=== PATIENT | male | born 1935 | race Caucasian/White ===

== ENCOUNTER → 2020-08-21 | Outpatient (CLI) | payer MEDICARE ==
[~2020-08-21] MED LIST: ALBU90OI INH; ASPI81EC PO; FINA5 PO; LIVALO2 MG PO; LOSA25 PO; LOVA40 PO; TAMS.4ER PO; XARELTO PO; Zithromax250 MG PO
== END | disposition home or self-care (01) ==
LOC: LAB SHORT 10:44 → PLD 10:44
DX: D48.5 Neoplasm of uncertain behavior of skin (principal)
CPT/HCPCS: 88305

== ENCOUNTER → 2020-08-28 | Outpatient (CLI) | payer MEDICARE | END | disposition home or self-care (01) | LOC: PLD 08:13 → LAB SHORT 08:13 | DX: C44.311 Basal cell carcinoma of skin of nose (principal) | CPT/HCPCS: 88305 ==

== ENCOUNTER 2021-05-27 08:46 | Emergency (ER) | payer MEDICARE ==
[~2021-05-27] VITALS: Ht 172.7 cm; Wt 83.9 kg
[2021-05-27] MEDS ORDERED: CODACE30 PO (10:42)
== END 2021-05-27 11:10 | disposition home or self-care (01) ==
LOC: ER 08:46
DX: S80.02XA Contusion of left knee, initial encounter (principal); S70.02XA Contusion of left hip, initial encounter; I48.91 Unspecified atrial fibrillation; E78.5 Hyperlipidemia, unspecified; Z79.01 Long term (current) use of anticoagulants; Z79.899 Other long term (current) drug therapy
CPT/HCPCS: 73502; 73552; 73562-LT; 99283-25

== ENCOUNTER → 2022-07-14 | Outpatient (CLI) | payer MEDICARE ==
[~2022-07-14] MED LIST changes: +CODACE30 PO
== END | disposition home or self-care (01) ==
LOC: LAB SHORT 11:32 → PLD 11:32 → LAB 11:32
DX: C44.311 Basal cell carcinoma of skin of nose (principal); L57.0 Actinic keratosis
CPT/HCPCS: 88305; 88312

== ENCOUNTER 2022-08-06 06:02 | Day surgery (SDC) | payer MEDICARE ==
[~2022-08-06] VITALS: Ht 172.7 cm; Wt 74.0 kg
[~2022-08-06 06:02] MED LIST changes: +XARELTO20 MG PO
--- NOTE | 2022-08-06 08:57 | NUR ---
patient awake and responds apprpriately,dressing d&i, no hematoma, no bleeding
--- NOTE | 2022-08-06 09:22 | NUR ---
PT SITTING UP ON THE SIDE OF THE BED, EATING BREAKFAST. DENIES PAIN OR DISCOMFORT. VSS, REMAINS AT BEDSIDE.
--- NOTE | 2022-08-06 09:51 | NUR ---
IV DC'D, CATH INTACT. PT AND SPOUSE GIVEN DC INSTRUCTIONS AND FOLLOW UP INFO, VERBALIZED UNDERSTANDING. 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 PT OUT TO CAR VIA WHEELCHAIR.
== END 2022-08-06 10:15 | disposition home or self-care (01) ==
LOC: MHTC 06:02
DX: Z45.010 Encounter for checking and testing of cardiac pacemaker pulse generator [battery] (principal); R55 Syncope and collapse; I48.91 Unspecified atrial fibrillation; I10 Essential (primary) hypertension; I25.10 Atherosclerotic heart disease of native coronary artery without angina pectoris; E78.5 Hyperlipidemia, unspecified; I34.0 Nonrheumatic mitral (valve) insufficiency; I45.4 Nonspecific intraventricular block
CPT/HCPCS: 33228; 99152; 99153; C1781; C1785; J0690; J1644; J2250; J3010; J7040

== ENCOUNTER 2022-10-04 10:21 | Emergency (ER) | payer MEDICARE ==
[~2022-10-04] VITALS: Ht 172.7 cm; Wt 75.3 kg
[2022-10-04] MEDS ORDERED: LOSA50 PO (12:38)
[2022-10-04] MEDS ORDERED: EUTHYROX75 MC1 PO (12:38)
[2022-10-04] MEDS ORDERED: DOCU100 PO (13:05)
[2022-10-04] MEDS ORDERED: HYDR1TAB94 PO (13:05)
== END 2022-10-04 13:18 | disposition home or self-care (01) ==
LOC: ER 10:21
DX: S40.011A Contusion of right shoulder, initial encounter (principal); M19.011 Primary osteoarthritis, right shoulder; E78.5 Hyperlipidemia, unspecified; W11.XXXA Fall on and from ladder, initial encounter; Z79.899 Other long term (current) drug therapy; Z79.01 Long term (current) use of anticoagulants; Z79.890 Hormone replacement therapy; Z95.0 Presence of cardiac pacemaker; Z95.5 Presence of coronary angioplasty implant and graft
CPT/HCPCS: 73030; A9270

== ENCOUNTER → 2023-04-08 | Outpatient (CLI) | payer MEDICARE ==
[~2023-04-08] MED LIST changes: +DOCU100 PO; +EUTHYROX75 MC1 PO; +HYDR1TAB94 PO; +LOSA50 PO
== END ==
LOC: PLD 15:01 → LAB SHORT 15:01
DX: D48.5 Neoplasm of uncertain behavior of skin (principal)
CPT/HCPCS: 88305

== ENCOUNTER 2024-07-26 16:29 | Emergency (ER) | payer OTHER, MEDICARE ==
[~2024-07-26] VITALS: Ht 172.7 cm; Wt 80.3 kg
[2024-07-26 19:12] VITALS: BP 153/81
[2024-07-26 19:31] LABS: BASOPHILS ABSOLUTE AUTO 0.03 K/mm3 (0.00-0.23); BASOPHILS PERCENT AUTO 1 % (0-2); EOSINOPHILS ABSOLUTE AUTO 0.13 K/mm3 (0.00-0.68); EOSINOPHILS PERCENT AUTO 2 % (0-6); Hemoglobin 9.1 g/dL (13.5-17.5); IMMATURE GRAN ABSOLUTE AUTO 0.02 K/mm3 (0.00-0.10); IMMATURE GRAN PERCENT AUTO 0 % (0-1); LYMPHOCYTES ABSOLUTE AUTO 0.96 K/mm3 (0.84-5.20); LYMPHOCYTES PERCENT AUTO 16 % (21-46); MONOCYTES ABSOLUTE AUTO 0.59 K/mm3 (0.16-1.47); MONOCYTES PERCENT AUTO 10 % (4-13); Mean Corpuscular HGB Conc 31.4 g/dL (31.5-36.5); Mean Corpuscular Volume 89 fL (80-100); Mean Platelet Volume 10.6 fL (9.1-12.4); NEUTROPHILS ABSOLUTE AUTO 4.44 K/mm3 (1.96-9.15); NEUTROPHILS PERCENT AUTO 72 % (41-73); Platelet Count 220 K/mm3 (150-400); RDW Coefficient Variation 15.5 % (11.7-14.2); Red Blood Cell Count 3.25 M/mm3 (4.30-5.90); White Blood Cell Count 6.17 K/mm3 (4.00-11.30)
[2024-07-26 19:37] LABS: International Normalized Ratio 1.4; Prothrombin Time Results 14.6 Sec (9.7-11.5)
[2024-07-26 19:44] LABS: Albumin, Blood 3.5 g/dL (3.4-5.0); Albumin/Globulin Ratio 0.9 (0.8-1.8); Bilirubin, Total 0.9 mg/dL (0.1-1.0); Bun/Creatinine Ratio 24.2 (12.0-20.0); Calcium, Blood 9.1 mg/dL (8.5-10.1); Creatinine, Blood 0.75 mg/dL (0.60-1.20); Globulin, Blood 3.7 g/dL (2.2-4.0); Potassium, Blood 4.2 mmol/L (3.5-5.5); Total Protein, Blood 7.2 g/dL (6.4-8.2)
== END 2024-07-26 20:28 | disposition home or self-care (01) ==
LOC: ER 16:29
PROVIDERS: Student in an Organized Health Care Education/Training Program
DX: S41.112A Laceration without foreign body of left upper arm, initial encounter (principal); S41.111A Laceration without foreign body of right upper arm, initial encounter; M25.552 Pain in left hip; I48.91 Unspecified atrial fibrillation; W01.0XXA Fall on same level from slipping, tripping and stumbling without subsequent striking against object, initial encounter; Z87.39 Personal history of other diseases of the musculoskeletal system and connective tissue; Z86.73 Personal history of transient ischemic attack (TIA), and cerebral infarction without residual deficits; Z79.899 Other long term (current) drug therapy; Z79.01 Long term (current) use of anticoagulants
CPT/HCPCS: 70450; 80053; 85025; 85610; 85730; 99284-25

== ENCOUNTER 2024-08-10 13:19 | Emergency (ER) | payer MEDICARE ==
[~2024-08-10] VITALS: Ht 172.7 cm; Wt 77.1 kg
[~2024-08-10 13:19] MED LIST changes: +EUTHYROX125 MC1 PO; -EUTHYROX75 MC1 PO
[2024-08-10 14:44] LABS: Source, Urine Voided
[2024-08-10 14:52] LABS: Appearance, Urine Clear (Clear); Bilirubin, Urine Neg (Neg); Blood, Urine Neg (Neg); Color, Urine Yellow (P-Yellow); Glucose Qualitative, Urine Neg (Neg); Ketones, Urine Neg (Neg); Leukocyte Esterase, Urine Neg (Neg); Nitrite, Urine Neg (Neg); Protein, Urine 1+ (Neg); Specific Gravity, Urine 1.015 (1.003-1.022); Urobilinogen, Urine 1+ (Normal)
[2024-08-10 15:10] LABS: BASOPHILS ABSOLUTE AUTO 0.03 K/mm3 (0.00-0.23); BASOPHILS PERCENT AUTO 0 % (0-2); EOSINOPHILS PERCENT AUTO 1 % (0-6); Hematocrit 28.8 % (37.0-53.0); Hemoglobin 9.3 g/dL (13.5-17.5); IMMATURE GRAN ABSOLUTE AUTO 0.01 K/mm3 (0.00-0.10); IMMATURE GRAN PERCENT AUTO 0 % (0-1); LYMPHOCYTES ABSOLUTE AUTO 0.92 K/mm3 (0.84-5.20); LYMPHOCYTES PERCENT AUTO 13 % (21-46); MONOCYTES ABSOLUTE AUTO 0.58 K/mm3 (0.16-1.47); MONOCYTES PERCENT AUTO 8 % (4-13); Mean Corpuscular HGB 28.5 pg (26.0-34.0); Mean Corpuscular HGB Conc 32.3 g/dL (31.5-36.5); Mean Corpuscular Volume 88 fL (80-100); Mean Platelet Volume 9.8 fL (9.1-12.4); NEUTROPHILS ABSOLUTE AUTO 5.36 K/mm3 (1.96-9.15); NEUTROPHILS PERCENT AUTO 77 % (41-73); Platelet Count 216 K/mm3 (150-400); RDW Coefficient Variation 16.6 % (11.7-14.2); RDW Standard Deviation 53.6 fL (35.1-46.3); Red Blood Cell Count 3.26 M/mm3 (4.30-5.90)
[2024-08-10 15:30] LABS: Albumin, Blood 3.6 g/dL (3.4-5.0); Bilirubin, Total 0.6 mg/dL (0.1-1.0); Bun/Creatinine Ratio 28.6 (12.0-20.0); Calcium, Blood 8.8 mg/dL (8.5-10.1); Creatinine, Blood 0.7 mg/dL (0.60-1.20); Globulin, Blood 3.7 g/dL (2.2-4.0); Potassium, Blood 3.9 mmol/L (3.5-5.5); Total Protein, Blood 7.3 g/dL (6.4-8.2)
[2024-08-10 16:00] VITALS: BP 131/79
[2024-08-10] MEDS ORDERED: QUEtiapine Fumarate 25 MG Tab PO ONE (17:05)
== END 2024-08-10 17:21 | disposition home or self-care (01) ==
LOC: ER 13:19
PROVIDERS: Emergency Medicine
DX: R45.1 Restlessness and agitation (principal); I25.10 Atherosclerotic heart disease of native coronary artery without angina pectoris; I48.91 Unspecified atrial fibrillation; E78.5 Hyperlipidemia, unspecified; Z79.01 Long term (current) use of anticoagulants; Z79.899 Other long term (current) drug therapy; Z79.890 Hormone replacement therapy; Z95.0 Presence of cardiac pacemaker; Z95.5 Presence of coronary angioplasty implant and graft
CPT/HCPCS: 36415; 80053; 85025; 99285; A9270

== ENCOUNTER 2024-08-11 17:41 | Observation (INO) | payer MEDICARE ==
[~2024-08-11] VITALS: Ht 172.7 cm; Wt 77.1 kg
[2024-08-11] MEDS ORDERED: QUEtiapine Fumarate 50 MG TAB PO ONE (20:00)
[2024-08-11 20:25] LABS: BASOPHILS ABSOLUTE AUTO 0.03 K/mm3 (0.00-0.23); BASOPHILS PERCENT AUTO 1 % (0-2); EOSINOPHILS ABSOLUTE AUTO 0.12 K/mm3 (0.00-0.68); EOSINOPHILS PERCENT AUTO 2 % (0-6); Hematocrit 29.6 % (37.0-53.0); Hemoglobin 9.2 g/dL (13.5-17.5); IMMATURE GRAN ABSOLUTE AUTO 0.01 K/mm3 (0.00-0.10); IMMATURE GRAN PERCENT AUTO 0 % (0-1); LYMPHOCYTES ABSOLUTE AUTO 0.94 K/mm3 (0.84-5.20); LYMPHOCYTES PERCENT AUTO 18 % (21-46); MONOCYTES ABSOLUTE AUTO 0.54 K/mm3 (0.16-1.47); MONOCYTES PERCENT AUTO 10 % (4-13); Mean Corpuscular HGB 28.4 pg (26.0-34.0); Mean Corpuscular HGB Conc 31.1 g/dL (31.5-36.5); Mean Corpuscular Volume 91 fL (80-100); Mean Platelet Volume 10.2 fL (9.1-12.4); NEUTROPHILS ABSOLUTE AUTO 3.63 K/mm3 (1.96-9.15); NEUTROPHILS PERCENT AUTO 69 % (41-73); Platelet Count 202 K/mm3 (150-400); RDW Coefficient Variation 17.1 % (11.7-14.2); RDW Standard Deviation 57.1 fL (35.1-46.3); Red Blood Cell Count 3.24 M/mm3 (4.30-5.90); White Blood Cell Count 5.27 K/mm3 (4.00-11.30)
[2024-08-11 22:57] LABS: U Amphetamine Screen Not Detected; U Barbituate Screen Not Detected; U Benzodiazapine Screen Not Detected; U Buprenorphine Screen Not Detected; U Cannabinoids Screen Not Detected; U Cocaine Screen Not Detected; U Methadone Screen Not Detected; U Methamphetamine Screen Not Detected; U Opiates Screen Not Detected; U Oxycodone Screen Not Detected; U Phencyclidine Screen Not Detected
[2024-08-11 23:08] LABS: Influenza A, PCR NEGATIVE (NEGATIVE); Influenza B, PCR NEGATIVE (NEGATIVE); Resp Syncytial Virus, PCR NEGATIVE (NEGATIVE); SARS-Cov-2 (COVID-19) PCR, MMC NEGATIVE (NEGATIVE)
[2024-08-12] MEDS ORDERED: OLANZapine 10 MG Vial IM PRN ×2 (14:50→16:05)
[2024-08-12] MEDS ORDERED: QUEtiapine Fumarate 50 MG TAB PO PRN (14:50)
[2024-08-12] MEDS ORDERED: Acetaminophen 325 MG TABLET PO PRN (15:35)
[2024-08-12] MEDS ORDERED: FLU VACC TS2024-25(6MOS UP)/PF 45 MCG/0.5 ML SYRINGE IM SCH (15:35)
--- NOTE | 2024-08-12 18:44 | NUR ---
PT ARRIVED TO ROOM AT 1837. PT IS AOX3 AND WAS COOPERATING WITH BEING TURNED AND SETTLED INTO BED. PT GIVEN HIS DINNER AND SHOWN THE REMOTE. NO DISTRESS NOTED WILL CONTINUE TO MONITOR.
[2024-08-12 19:48] VITALS: BP 134/67
[2024-08-13] MEDS ORDERED: TAMSULOSIN HCL0.4 M1 PO (01:41)
[2024-08-13] MEDS ORDERED: Potassium Chlo20 ME1 PO (01:44)
[2024-08-13] MEDS ORDERED: FUROSEMIDE20 MG PO (01:45)
[2024-08-13] MEDS ORDERED: QUETIAPINE FUMA25 MG PO (01:46)
[2024-08-13 02:16] VITALS: BP 146/64
--- NOTE | 2024-08-13 06:07 | NUR ---
SHIFT SUMMARY PT A&OX3 AND IS ABLE TO MAKE NEEDS KNOWN. 1 ON [address] DUE TO BEHAVIORS ON ADMISSION. SCHEDULED MEDICATIONS ADMINISTERED. VSS, NO COMPLAINTS OF CP/PRESSURE OR SOB. PT SPENT MOST OF SHIFT IN BED WITH EYES CLSOED AND RESPIRATIONS EVEN AND UNLABORED. NO ACUTE EVENTS AT THIS TIME. PT REPOSITIONED Q2HRS. PT LEFT IN A POSITION OF SAFETY WITH FALL PRECAUTIONS IN PLACE AND CALL LIGHT IN REACH.
[2024-08-13 07:31] VITALS: BP 133/71
[2024-08-13] MEDS ORDERED: Enoxaparin 40 MG/0.4 ML SYR SC SCH (09:00)
[2024-08-13] MEDS ORDERED: HYDROcodone 5-APAP 325 TAB PO PRN (09:40)
[2024-08-13] MEDS ORDERED: Docusate Sodium 100 MG Cap PO SCH (10:00)
[2024-08-13] MEDS ORDERED: Tamsulosin HCl 0.4 MG Cap PO SCH (10:00)
[2024-08-13] MEDS ORDERED: Potassium Chloride 20 MEQ TabCR PO SCH (10:00)
[2024-08-13] MEDS ORDERED: Losartan Potassium 50 MG Tab PO SCH (10:00)
[2024-08-13] MEDS ORDERED: Furosemide 20 MG Tab PO SCH (10:00)
[2024-08-13 15:31] VITALS: BP 151/83
--- NOTE | 2024-08-13 17:32 | NUR ---
INCREASING AGITATION-MD CALLED SPOKE WITH REGARDING THE PSYCH DOCTOR'S RECOMMENDATION TO USE ZYPREXA SPARINGLY AND RECOMMENDATIONS TO UE EITHER CITALOPRAM OR BREXPIPRAZOLE. ALSO INFORMED THAT PATIENT'S SPOUSE BROUGHT A COPY OF HIS POLST FORM AND DNR IS LISTED. MD STATES HE WILL REVIEW HIS CHART AND CHANGE ORDERS.
[2024-08-13] MEDS ORDERED: OLANZapine ODT 5 MG Tab MM PRN (17:40)
[2024-08-13] MEDS ORDERED: Citalopram Hydrobromide 20 MG Tab PO SCH (18:00)
[2024-08-13] MEDS ORDERED: Rivaroxaban 10 MG Tab PO SCH (18:00)
--- NOTE | 2024-08-13 18:23 | NUR ---
SHIFT SUMMARY PATIENT A/OX3, FORGETFUL WITH INTERMITTENT CONFUSION AND COMBATIVENESS. AGGRESSIVELY SQUEEZED STAFF MEMBERS ARM WHEN ATTEMPTING TO TRANSFER PATIENT FROM RECLINER BACK TO BED. PATIENT AMBULATED IN HALLWAY WITH 2 STAFF MEMBERS, WEAKNESS TO LEFT LEG. PATIENT DENIES PAIN THIS SHIFT. PSYCH ASSESSED PATIENT AND PROVIDED NEW MEDICATION RECOMMENDATIONS THIS AM. CITALOPRAM STARTED THIS AFTERNOON. PATIENT WITH FAMILY FRIEND AND SPOUSE AT BEDSIDE THIS AFTERNOON AND BECAME AGITATED TOWARDS THE END OF THE VISIT. EKG OBTAINED THIS MORNING AND PHYSICAL COPY IN CHART. ORTHO ASSESSED PATIENT THIS MORNING AND RECOMMENDED PATIENT TO KEEP UPCOMING APPOINTMENT R/T LEFT HIP PAIN AND SURGERY IN [place]. SPOUSE INFORMED OF RECOMMENDATION. SPOKE WITH JEWELRY APPRAISER REGUARDING GERIATRIC U PLACEMENT AND FAXED INFORMATION TO [facility] AND [facility]. NO OTHER CONCERNS AT THIS TIME.
[2024-08-13 20:03] VITALS: BP 143/91
[2024-08-13] MEDS ORDERED: Atorvastatin 10 MG Tab PO SCH (21:00)
[2024-08-14 02:44] VITALS: BP 139/70
[2024-08-14] MEDS ORDERED: Levothyroxine Sodium 0.125 MG Tab PO SCH (06:00)
[2024-08-14 06:11] LABS: Bun/Creatinine Ratio 21.1 (12.0-20.0); Calcium, Blood 8.8 mg/dL (8.5-10.1); Creatinine, Blood 0.71 mg/dL (0.60-1.20)
[2024-08-14 07:19] VITALS: BP 146/70
[2024-08-14 11:50] VITALS: BP 170/89
--- NOTE | 2024-08-14 12:01 | NUR ---
PATIENT EXPERIENCING EXTRAPYRAMIDAL SYMPTOMS DR. HAYWARD NOTIFIED AND CAME TO BEDSIDE DURING EPISODE. PATIENT NOT RESPONDING VERBAL INITIALLY WITH UNCONTROLLABLE LIMB MOVEMENTS AND TARDIVE DYSKINESIA. PATIENT THEN BECOMING RESPONSIVE VERBALLY INTERMITENTLY SAYING "NO" REPEATEDELY. REPETETIVE TONGUE MOVEMENTS AND PATIENT EXPERIENCING HALLUCINATIONS, REFUSING TO OPEN EYES OR LISTEN TO NURSING STAFF INSTRUCTION. WHEN VITAL SIGNS WERE OBTAINED, PATIENT BECAME AGGRESSIVE WITH STAFF AND ATTEMPTING KICKING, HITTING, AND PINCHING STAFF MEMBERS AND GRABBING AT PULSE OXIMETER REFUSING TO LET GO. MD STATES TO CONTINUE TO MONITOR AND WILL UPDATE MEDICATION ORDERS. PATIENT NOTED WITH HYPERTENSION AT TIME OF EPISODE. PATIENT REMAINS IN BED WITH 1:1 SITTER AT BEDSIDE AND CONTINUOUS MONITORING. ZYPREXA ORDER IN PLACE NEEDED, NOT GIVEN AT THIS PER MD RECOMMENDATIONS.
[2024-08-14 15:11] VITALS: BP 141/71
--- NOTE | 2024-08-14 18:19 | NUR ---
SHIFT SUMMARY PATIENT A/OX3 THIS MORNING, PLEASANT AND COOPERATIVE WITH STAFF MEMBERS UNTIL AROUND 1130. PATIENT EXPERIENCED WHAT APPEARS TO BE EXTRAPYRAMIDAL SYMPTOMS WITH UNCONTROLLABLE MOUTH AND TONGUE MOVEMENTS, AND BILATERAL UPPER AND LOWER EXTREMITY MOVEMENTS. PATIENT NOT RESPONDING VERBALLY AT THE TIME AND EPISODE LASTED FOR APPROXIMATELY 25 MINUTES. PATIENT THEN HAVING VISUAL HALLUCINATIONS. PATIENT HAS SINCE BEEN AGGRESSIVE TOWARDS STAFF MEMBERS, NOT COOPERATIVE, REFUSING MEDICATIONS. PATIENT HAS THROWN A USED URINAL AT STAFF AND WHEN ATTEMPTED TO GIVE EVENING MEDICATIONS PATIENT HAD REMOVED THE LID TO HIS WATER, SPILLED A SCANT AMOUNT OF WATER ONTO HIMSELF, BECAME ANGRY AND ATTEMPTED TO THROW HIS WATER CUP AT THIS RN. PATIENT CURRENTLY SITTING IN WATER SOAKED BEDDING AND REFUSING TO ALLOW STAFF TO CLEAN HIM. PATIENT REFUSED MEDICATION DESPITE MULTIPLE ATTEMPTS AND OVER 30 MINUTES SPENT WITH PATIENT. STATING STAFF MEMBERS HAVE "SERIOUSLY INSULTED HIS HOUSE GUESTS" AND ALSO MAKING CRUDE AND SEXUAL COMMENTS TOWARDS STAFF. 1:1 SITTER AT BEDSIDE. PATIENT DENYING PAIN. CONTINUES TO BE CONFUSED, DISORIENTED, AND VERBALLY AGGRESSIVE. AWAITING PLACEMENT TO A BEHAVIORAL HEALTH UNIT.
[2024-08-15 02:41] VITALS: BP 159/76
--- NOTE | 2024-08-15 06:03 | NUR ---
SHIFT SUMMARY PT A&O TO SELF AND IS NOT REDIRECTABLE. PT IS CONFUSED. PT HAS 1 ON 1 SITTER FOR INAPPROPRIATE BEHAVIORS. PT SHOWED MULTIPLE ATTEMPTS TO LEAVE THE BED UNSAFELY AND BECAME COMBATIVE DURING PT CARE. PT REFUSED HS MEDICATIONS. PT RECEIVED PRN MEDICATIONS. X4 GUARDRAILS RAISED TO REDUCE FALL RISK AND MAINTAIN PT SAFETY. NO ACUTE EVENTS AT THIS TIME. PT SPENT MOST OF SHIFT IN BED WITH RESPIRATIONS EVEN AND UNLABORED, BUT WAS NOT ABLE TO SLEEP. PT LEFT IN A POSITION OF SAFETY WITH BED IN LOWEST POSITION, BED ALARM ENABLED, 1 ON 1 SITTER IN ROOM, ROOM FREE OF DEBRIS, GUARDRAILS UP, CALL LIGHT IN REACH. PT REPOSITIONED Q2HRS.
[2024-08-15 07:19] VITALS: BP 154/115
[2024-08-15 07:23] VITALS: BP 146/74
[2024-08-15 14:58] VITALS: BP 123/72
--- NOTE | 2024-08-15 16:50 | NUR ---
SHIFT SUMMARY DEONTE HAD A GOOD DAY. HE IS WITH A 1:1 SITTER DUE TO UNSAFE IMPULSIVITY, PLACING HIM AT RISK FOR FALLS. RESTRAINT WITH FOUR RAILS WAS DC'D EARLIER TODAY. PT HAS REMAINED SAFE. VISITED WITH SOPHY, AT THE BEDSIDE. RECEIVED A PRN NORCO FOR LEFT HIP PAIN, WHICH RESOLVED PAIN. PRESENTLY PT IS SLEEPING. ROOM AIR. NO TELE. IV ACCESS TO THE RAC. AWAITING BEHAVIORAL HEALTH PLACEMENT TO A GERIATRIC UNIT. WILL F/U WITH ORTHO APPT AT [facility] ON 09/21. HAS PACEMAKER.
[2024-08-15 20:32] VITALS: BP 135/75
[2024-08-16 04:00] VITALS: BP 122/70
--- NOTE | 2024-08-16 04:07 | NUR ---
SHIFT SUMMARY ADMITTED FOR DEMENTIA. DNR CODE. PLAN IS FOR GERIATRIC PSYCHIATRIC PLACEMENT. ON RA. ADA DIET. VA PATIENT. PACEMAKER IN PLACE. DR. HERNANDEZ IS ORTHO CONSULT REGARDING LEFT HIP ARTHROPLASTY FRACTURE. DR. HARDEN IS PSYCHIATRIC CONSULT. HE IS ON XARELTO. 2 ASSIST W/GB & FWW TO BSC. HE IS A&O XSELF ONLY. NOT EASILY REDIRECTABLE. HX OF AGGRESSION AT TIMES. ALZHEIMER'S/DEMENTIA.
[2024-08-16 07:15] VITALS: BP 123/63
[2024-08-16] MEDS ORDERED: OLANZapine 10 MG Vial IM PRN (10:15)
[2024-08-16 14:59] VITALS: BP 125/62
--- NOTE | 2024-08-16 17:36 | NUR ---
SHIFT SUMMARY: PT HAVING INTERMITTENT MINIMAL TO SEVERE CONFUSION. PLEASANT AND COOPERATIVE. PT HAD 1:1 SITTER UNTIL EARLY EVENING PT WAS NOT SHOWING ANY S/S OF AGITATION, AGGRESSION, OR ATTEMPTS OOB. PT HAD LARGE CONTINENT BM IN BSC USING 2P ASSIST THIS AM. MEDS CRUSHED IN APPLESAUCE PT CHEWS c MEDS WHOLE. ODT ZYPREXA PROVIDED ONCE THIS SHIFT POST SITTER REMOVAL. DENIED NEED FOR PAIN MEDICATION FOR L. HIP PAIN. PLAN FOR PLACEMENT TO BEHAVIORAL HEALTH UNIT. CALL LIGHT IN REACH. BED IN LOWEST POSITION.
[2024-08-16 19:32] VITALS: BP 128/70
[2024-08-17 02:31] VITALS: BP 145/72
--- NOTE | 2024-08-17 04:43 | NUR ---
SHIFT SUMMARY: PT ALERT ORIENTED TO SELF ONLY. REMAINS VERY CONFUSED. HAD SOME AGRESSION WITH CHANGING HIS BRIEF. C/O HIP PAIN MEDICATED WITH NORCO AT 0405. HAS A 1:1 SITTER. INCONTINENT OF URINE. VSS. RESTING IN BED AT THIS TIME. AWAITING BEHAVIOR HEALTH PLACEMENT.
[2024-08-17 07:12] VITALS: BP 138/75
[2024-08-17 15:09] VITALS: BP 136/66
--- NOTE | 2024-08-17 17:20 | NUR ---
SHIFT SUMMARY PT AO TO SELF. 2P TO THE CHAIR, HE IS UP FOR EACH MEAL. NO COMPLAINTS FROM THE PT THIS SHIFT. DENIES ANY PAIN. REPOSITIONED THROUGHOUT THE SHIFT IN THE BED, HE SLEPT A MAJORITY OF THE DAY BETWEEN MEALS. AT THE BS THIS SHIFT, SHE WAS UPDATED. WAITING ON PLACEMENT. BA AND CA ON WHEN APPLICABLE. CALL LIGHT WITHIN REACH, BED LOCKED AND IN THE LOWEST POSITION. WILL REPORT TO ONCOMING NURSE. 1:[address]
[2024-08-17 20:13] VITALS: BP 132/76
[2024-08-18 02:27] VITALS: BP 135/78
--- NOTE | 2024-08-18 03:46 | NUR ---
SHIFT SUMMARY: PT ALERT ORIENTED TO SELF AND PLACE. SEEMS TO BE ALOT MORE ALERT THIS SHIFT. NO EPISODES OF AGRESSIVE BEHAVIOR. NO C/O PAIN. INC OF URINE. AWAITING DISCHARGE TO HOME OR BEHAVIOR HEALTH UNIT. VSS HAS BEEN SLEEPING MOST OF THE SHIFT. BED ALARM ON. RESTING IN BED AT THIS TIME
--- NOTE | 2024-08-18 03:51 | NUR ---
SHIFT SUMMARY: PT ALERT ORIENTED TO SELF. HE HAS BEEN VERY RESTLESS AND AGITATED THIS SHIFT. HE CONTINUES TO TRY TO PULL OUT THORPE CATHETER. HE HAS A 1:1 SITTER TO HELP WITH HIS SAFETY. HE WAS VERY IRATE WITH THE STAFF. SEROQUEL AND ZYPREXA WAS GIVEN WITH LITTLE RELIEF. HE HAD TYLENOL TO HELP WITH PAIN CONTROL. WHEN ASKED HE STATED THAT HE WASNT IN PAIN BUT WAS HAVING ALOT OF FACIAL GRIMMACES. PT WAS UP MOST OF THE NIGHT AND FINALLY WENT TO SLEEP. VSS. REMAINS WITH A THORPE CATHETER. RESTING IN BED AT THIS TIME WITH A BED ALARM ON AT ALL TIMES.
[2024-08-18 07:08] VITALS: BP 120/69
[2024-08-18 08:34] VITALS: BP 117/79
[2024-08-18 15:21] VITALS: BP 136/70
--- NOTE | 2024-08-18 17:04 | NUR ---
SHIFT SUMMARY PT AOX3, THIS AFTENOON HE IS AGITATED THAT HE CANNOT GO HOME. HE HAS BECOME MORE IMPUSLIVE THIS AFTERNOON, NOT USING HIS CALL LIGHT AND JUST ATTEMPTING TO GET OOB. BA AND CA ON WHEN APPLICABLE. MEDICATED FOR PAIN PER THE EMAR. MEDICATED FOR AGITATION PER THE EMAR. UP TO THE CHAIR THIS AFTERNOON. HE IS A 2P TO THE CHAIR OR BSC. PLAN IS FOR PLACEMENT IT IS NOT SAFE FOR HIM TO GO HOME AT THIS TIME. AND NIECE AT THE BS TODAY. CALL LIGHT WITHIN REACH, BED LOCKED AND IN THE LOWEST POSITION. WILL REPORT TO ONCOMING NURSE.
--- NOTE | 2024-08-18 18:35 | NUR ---
NOTE: PT GREW MORE AGITATED AND VERBALLY AGGRESSIVE THIS EVENING. IMPULSIVE AND CONSTANTLY TRYING TO GET UP. PT THREW THE PHONE DOWN ON THE GROUND. MEDICIATED PER THE EMAR USING IM ZYPREXA. PT TOLERATED THE SHOT WELL. HE REMAINS IN THIS CHAIR AT THIS TIME. CA ON.
[2024-08-18 19:54] VITALS: BP 142/61
[2024-08-19 03:04] VITALS: BP 132/67
--- NOTE | 2024-08-19 03:40 | NUR ---
SHIFT SUMMARY: pT ALERT ORIENTED TO SELF AND PLACE. HES HAD SEVERAL ATTEMPTS OF TRYING TO GET OUT OF BED ALONE. VSS. NO AGGRESSION THIS SHIFT BUT WAS VERY ANGRY AND ANXIOUS. ZYPREXA WAS GIVEN WHICH HELPED. C/O HIP PAIN MEDICATED WITH NORCO WITH GOOD RELIEF. BED ALARM ON AND CALL LIGHT IN REACH. AWAITING PLACEMENT R/T UNSAFE TO GO HOME WITH HIS .
[2024-08-19 07:16] VITALS: BP 128/66
--- NOTE | 2024-08-19 11:32 | NUR ---
PATIENT SCREAMS OUT FOR LULU AT TIMES, HARD TO REDIRECT, 1-2PA WITH GAIT BELT TO BS, ATE BREAKFAST, SNORING LOUDLY NOW, CALL LIGHT WITH IN REACH, BED ALARM ON
--- NOTE | 2024-08-19 15:53 | NUR ---
NO ACUTE CHANGES, PATIENT OREINTED TO SELF AND FAMILY, CLEARLY MAKES NEEDS KNOWN AT TIMES, 1-2 PERSON ASSIST TO TRANSFER FOR BSC WITH GAIT BELT, HARD TO REDIRECT OR ORIENT, MEDICATED WITH ZYPREXA FOR INCREASED AGGITATION AND IMPULSIVENESS, HAD A VERY HARD BM TODAY, CONTIENT AT TIMES AND OTHER INCONTINUENT, VISITED TODAY, CALL LIGHT WITH IN REACH, BED ALARM ON, WILL RELAY TO PM RN
[2024-08-19 16:16] VITALS: BP 121/61
[2024-08-19 20:01] VITALS: BP 138/72
[2024-08-20 02:27] VITALS: BP 132/63
[2024-08-20 03:52] VITALS: BP 138/83
[2024-08-20 07:07] VITALS: BP 143/88
[2024-08-20 08:49] LABS: Bun/Creatinine Ratio 29.4 (12.0-20.0); Creatinine, Blood 0.68 mg/dL (0.60-1.20); Potassium, Blood 4.4 mmol/L (3.5-5.5)
[2024-08-20 16:30] VITALS: BP 103/52
[2024-08-20 16:33] VITALS: BP 98/49
--- NOTE | 2024-08-20 17:44 | NUR ---
NO ACUTE CHANGES, CALL LIGHT WITH IN REACH, VISITED TODAY, MEDICATED WITH TYLENOL FOR FACIAL GRIMACING, OOB IN CHAIR TODAY, CONTINENT OF BOWEL AND BLADDER, POSSBILE DISCAHRGE HOME WITH ON THURSDAY, PATIENT PLEASANT TO ITERACTION TODAY, SWALLOWED PILLS WHOLE WITH APPLESAUCE, BED ALARM ON, CALL LIGHT WITH IN REACH
[2024-08-20 19:59] VITALS: BP 129/63
[2024-08-21 02:12] VITALS: BP 125/58
[2024-08-21 07:01] VITALS: BP 122/60
[2024-08-21] MEDS ORDERED: Potassium Chloride 20 MEQ TabCR PO SCH (09:00)
[2024-08-21] MEDS ORDERED: Magnesium Hydroxide Conc 10 ML UDC PO PRN (10:50)
[2024-08-21 15:35] VITALS: BP 97/51
--- NOTE | 2024-08-21 18:40 | NUR ---
NO ACUTE CHANGES, READY TO TAKE PATIENT HOME TOMORROW, STATES THEY ARE STAYING AT FORGET ME NOT THE FIRST NIGHT, PATIENT MEDICATED WITH TYLENOL FOR PAIN, ALERT AND ORIENTED TO SELF AND FAMILY. MILK OF MAG AVAILABLE FOR HARD STOOLS, SATS RA, NO SOB, CHAIR ALARM/BED USED, CALL LIGHT WITH IN REACH
[2024-08-21 19:08] VITALS: BP 107/54
[2024-08-22 02:34] VITALS: BP 116/56
[2024-08-22 06:15] LABS: Bun/Creatinine Ratio 36.5 (12.0-20.0); Calcium, Blood 8.8 mg/dL (8.5-10.1); Creatinine, Blood 0.88 mg/dL (0.60-1.20); Potassium, Blood 4.4 mmol/L (3.5-5.5)
[2024-08-22 07:11] VITALS: BP 103/51
== END 2024-08-22 14:55 | disposition home health service (06) ==
LOC: ER 17:41 → MEDS 17:42 → ER 17:42 → EOR 17:42 → MEDS 08-12 15:32 → ER 08-12 15:32 → ERHOLD 08-12 15:32 → MEDS 08-12 18:37 → ERHOLD 08-12 18:37 → MEDS 08-22 14:55
PROVIDERS: Emergency Medicine; ADMIT Internal Medicine
DX: G30.9 Alzheimer's disease, unspecified (principal); F02.818 Dementia in other diseases classified elsewhere, unspecified severity, with other behavioral disturbance; T84.84XA Pain due to internal orthopedic prosthetic devices, implants and grafts, initial encounter; I25.10 Atherosclerotic heart disease of native coronary artery without angina pectoris; E78.5 Hyperlipidemia, unspecified; I48.91 Unspecified atrial fibrillation; I10 Essential (primary) hypertension; E03.9 Hypothyroidism, unspecified; D64.9 Anemia, unspecified; K59.00 Constipation, unspecified; Z66 Do not resuscitate; Z79.01 Long term (current) use of anticoagulants; Z79.890 Hormone replacement therapy; Z79.899 Other long term (current) drug therapy; Z95.0 Presence of cardiac pacemaker; Z95.5 Presence of coronary angioplasty implant and graft
CPT/HCPCS: 0241U; 36415; 80048; 80320; 85025; 86592; 93005; 93010; 96372; 96374; 96376; 97110; 97116; 97162; 97530; 99285; A9270; G0378; J1650